=== PATIENT | female | born 1965 | race Caucasian/White ===

== ENCOUNTER → 2024-04-06 07:59 | Outpatient (REF) | payer BC, SELFPAY | LOC: HWRCS 07:59 | PROVIDERS: ATTENDING PHYSICIAN Family Medicine | DX: R01.1 Cardiac murmur, unspecified (principal) | CPT/HCPCS: 93306 ==

== ENCOUNTER → 2025-03-29 07:30 | Outpatient (REF) | payer BC, SELFPAY | LOC: HWRCS 07:30 | PROVIDERS: ATTENDING PHYSICIAN Internal Medicine Cardiovascular Disease; FAMILY PHYSICIAN Family Medicine | DX: R07.89 Other chest pain (principal); R06.09 Other forms of dyspnea; C68.9 Malignant neoplasm of urinary organ, unspecified | CPT/HCPCS: 93306 ==

== ENCOUNTER → 2025-03-31 07:21 | Outpatient (REF) | payer BC, SELFPAY | LOC: RCS 07:21 | PROVIDERS: ATTENDING PHYSICIAN Internal Medicine Cardiovascular Disease; FAMILY PHYSICIAN Family Medicine | DX: R07.89 Other chest pain (principal); R06.09 Other forms of dyspnea | CPT/HCPCS: 93017 ==

== ENCOUNTER → 2025-04-27 09:59 | Outpatient (REF) | payer BC, SELFPAY | LOC: RCS 09:59 | PROVIDERS: ATTENDING PHYSICIAN Internal Medicine Cardiovascular Disease; FAMILY PHYSICIAN Family Medicine | DX: R07.89 Other chest pain (principal) | CPT/HCPCS: 93017; 93350 ==